=== PATIENT | female | born 1960 | race Caucasian/White ===

== ENCOUNTER → 2018-05-10 10:17 | Outpatient (CLI) | payer OTHER, SELFPAY ==
[2018-05-10 10:58] LABS: Absolute Lymphocyte Count 1.48 X10^3/ul (0.83-4.51); Absolute Neutrophil Count 3.4 X10^3/uL (2.0-7.7); Basophil# 0.02 X10^3/uL; Basophil% 0.4 % (0-1); Eosinophil# 0.08 X10^3/uL; Eosinophils% 1.5 % (0-5); Hematocrit 42.6 % (37-47); Hemoglobin 14.1 g/dl (12.0-15.0); Lymphocyte # 1.48 X10^3/ul (4.0); Lymphocyte % 27.3 % (19-41); Mean Corp Hgb Conc 33.1 g/gl (32-36); Mean Corpuscular Hgb 29.3 pg (27.0-32.0); Mean Corpuscular Volume 88.6 fL (81-99); Mean Platelet Vol. 10.5 fl (6.2-12.0); Monocyte# 0.49 X10^3/uL; Neutrophil # 3.35 X10^3/uL (2.7-7.7); Neutrophil % 61.6 % (47-70); POSITIVE COUNT NO; POSITIVE DIFFERENTIAL NO; POSITIVE MORPHOLOGY NO; Platelet Count 221 K/mm3 (150-450); RBC Distribution Width CV 12.8 % (11.6-14.6); RBC Distribution Width SD 41.1 fl (35.1-43.9); Red Blood Count 4.81 M/mm3 (4.2-5.4); White Blood Count 5.4 K/mm3 (4.4-11.0)
[2018-05-10 11:26] LABS: ALB/GLOB Ratio 1.3 RATIO (0.9-2.4); AST(SGOT) 23 U/L (15-37); Alanine Aminotransfer ALT/SGPT 44 U/L (13-56); Albumin, Serum 4.3 g/dL (3.2-5.0); Alkaline Phosphatase 109 U/L (45-117); Anion Gap 7 (5-15); BUN 17 mg/dL (7-18); BUN/Creat Ratio 24.3 RATIO (10-20); Calcium,Total 8.8 mg/dL (8.5-10.1); Chloride 105 mmol/L (98-107); EST Glomerular Filtration Rate 92 mL/min (>60); Est Glom Filt Rate - Afr Amer 111 mL/min (>60); Globulin 3.4 g/dL (2.2-4.2); Glucose 94 mg/dL (74-106); LDH 172 U/L (84-246); Protein, Total 7.7 g/dL (6.4-8.2); Sodium Level 142 mmol/L (136-145)
== END ==
PROVIDERS: Family Provider Preventive Medicine Occupational Medicine; PCP Preventive Medicine Occupational Medicine; Referring Provider Internal Medicine Medical Oncology; Visit Provider Internal Medicine Medical Oncology
DX: Z85.72 Personal history of non-Hodgkin lymphomas (principal)
CPT/HCPCS: 36415; 80053; 83615; 85025

== ENCOUNTER → 2018-06-28 07:50 | Outpatient (CLI) | payer OTHER, SELFPAY ==
--- NOTE | 2018-06-28 07:53 | BI_ITS ---
MAMMOGRAPHY - BILATERAL SCREENING REASON FOR EXAM: Female, 57 years old. Routine annual screening examination. PERTINENT HISTORY: Aunt with breast cancer. History of lymphoma. TECHNIQUE: Digital bilateral breast dexter (3D mammographic acquisition) in the CC and MLO projections. 2-D mediolateral oblique (MLO) and craniocaudad (CC) views of both breasts were obtained. CAD: Full Field Digital Mammography with Computer Added Detection was performed. COMPARISON: Comparison is made with prior study dated June 02, 2016 and June 24, 2014. FINDINGS: Breast Composition: The breasts are heterogeneously dense, which may obscure small masses. There are no dominant masses or suspicious calcifications. No other significant abnormalities are identified. There has been no significant change since the prior study. BI/SCREENING MAMM (CAD), BILAT IMPRESSION: Stable bilateral screening mammogram. Yearly follow-up mammogram recommended. (A) ASSESSMENT CATEGORY: BIRADS Category 1: Negative. A letter regarding these results will be sent to the patient by the facility within 30 days. Approximately 10% of breast cancers are not detected by mammography. A normal mammogram should not delay biopsy of a clinically suspicious abnormality. [id number] Electronically Signed: Jadon Campos MD at 9:36 EST Tel [phone], Service support ,
--- OUTSIDE RECORDS SUMMARY | 2018-08-14 02:41 | XMS RPT_ITS ---
:1960 Author Organization OHIP Care Team Providers Name Role Phone MS. ROLAND WATERS CNP Attending Unavailable JT KELSEY, MS. WATKINS Attending Unavailable MS. ROLAND WATERS CNP Primary Care Unavailable Wilton Martin Attending Unavailable Tyrese Chi Primary Care Unavailable Wilton Martin Attending Unavailable Tyrese Chi Primary Care Unavailable Tyrese Chi Referring Unavailable Wilton Martin Attending Unavailable Wilton Martin Referring Unavailable Tyrese Chi Primary Care Unavailable Wilton Martin Attending Unavailable Tyrese Chi Referring Unavailable Tyrese Chi Primary Care Unavailable Wilton Martin Consulting Unavailable PROBLEMS PROBLEMS DATE TYPE CONDITION / CODE ATTENDING STATUS SOURCE 05/12/2018 Unknown Z12.31 - Wilton Martin Active Akiko Encounter for [facility] screening Hospital mammogram for Repository malignant neoplasm of breast / Z12.31(ICD-10) PROCEDURES PROCEDURES No Procedure Records FoundRESULTS RESULTS SCREENING MAMM (CAD), Observed: 06/28/2018 Status: F Source: [place]KO JAIMES 7:53 AM [facility] REPOSITORY [facility] Imaging Services [address] [place] [address] SCREENING MAMM (CAD), BILAT MR#: [id number] Acct: [id number] Name: FARAZ HERNANDEZ Rep #: [id number] : 1960 F 57 From: Jadon Campos MD PCP: Tyrese Chi DO Status: REG CLI Study: SCREENING MAMM (CAD), BILAT Date of Exam: 06/28/18 Exam# [id number] Ordering Dr: Wilton Martin MD MAMMOGRAPHY - BILATERAL SCREENING REASON FOR EXAM: Female, 57 years old. Routine annual screening examination. PERTINENT HISTORY: Aunt with breast cancer. History of lymphoma. TECHNIQUE: Digital bilateral breast dexter (3D mammographic acquisition) in the CC and MLO projections. 2-D mediolateral oblique (MLO) and craniocaudad (CC) views of both breasts were obtained. CAD: Full Field Digital Mammography with Computer Added Detection was performed. COMPARISON: Comparison is made with prior study dated June 02, 2016 and June 24, 2014. FINDINGS: Breast Composition: The breasts are heterogeneously dense, which may obscure small masses. There are no dominant masses or suspicious calcifications. No other significant abnormalities are identified. There has been no significant change since the prior study. BI/SCREENING MAMM (CAD), BILAT IMPRESSION: Stable bilateral screening mammogram. Yearly follow-up mammogram recommended. (A) ASSESSMENT CATEGORY: BIRADS Category 1: Negative. A letter regarding these results will be sent to the patient by the facility within 30 days. Approximately 10% of breast cancers are not detected by mammography. A normal mammogram should not delay biopsy of a clinically suspicious abnormality. 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 LIPID Collected: 05/15/2018 Status: F Source: [facility] 9:29 AM [facility] REPOSITORY TYPE CODE TESTS RESULT OUT OF REFERENCE UNITS RANGE LAB CHOL(LOINC 0-200 mg/dL ) Cholesterol High 218 Result Comment: Cholesterol Reference Interval: Less than 200 Desirable 200-239 Borderline high risk 240 and above High risk LAB TRIG(LOINC) 0-150 mg/dL Triglycerides 43 Result Comment: Triglyceride Reference Interval: Less than 150 Normal 150-199 Borderline high risk 200-499 High risk 500 or higher Very high risk LAB HD(LOINC) 40-60 mg/dL HDL Cholesterol 58 LAB LDL(LOINC) 0-130 mg/dL LDL High Cholesterol 151 Performed By: #### LIPID, CMP, GFR #### [place] [id number] CMP Collected: 05/15/2018 Status: F Source: [facility] 9:29 AM [facility] REPOSITORY TYPE CODE TESTS RESULT OUT OF REFERENCE UNITS RANGE LAB GLU(LOINC) 70-105 mg/dL Glucose Level 92 LAB NA(LOINC) 136-145 mmol/L Sodium Level 143 LAB K(LOINC) 3.5-5.1 mmol/L Potassium Level 4.2 LAB CL(LOINC) 98-107 mmol/L Chloride 106 LAB CO2(LOINC) 22-29 mmol/L CO2 29 LAB EBAL(LOINC mEq/L ) Electrolyte Balance 8.0 LAB BUN(LOINC) 7-18 mg/dL BUN 14 LAB CRE(LOINC) 0.55-1.02 mg/dL Creatinine Lvl (s) 0.69 LAB BC(LOINC) 7-27 ratio BUN/Creatinine 20 Ratio LAB CA(LOINC) 8.4-10.2 mg/dL Calcium Lvl 9.0 LAB PROT(LOINC 6.4-8.2 G/dL ) Total Protein 6.9 LAB ALB(LOINC) 3.5-5.0 G/dL Albumin Level 4.1 LAB GLB(LOINC) G/dL Globulin 2.8 LAB AG(LOINC) 1.1-2.5 ratio A/G Ratio 1.5 LAB BILT(LOINC 0.2-1.0 mg/dL ) Bili Total 0.3 LAB AP(LOINC) 40-135 U/L Alk Phos 102 LAB AST(LOINC) 10-40 U/L AST/SGOT High 44 LAB ALT(LOINC) 10-35 U/L ALT/SGPT High 67 Performed By: #### LIPID, CMP, GFR #### [facility] [address] [place] [address] .GFR Collected: 05/15/2018 Status: F Source: [facility] 9:29 AM [facility] REPOSITORY TYPE CODE TESTS RESULT OUT OF REFERENCE UNITS RANGE LAB GFRAA(LOINC ml/min/1.73 ) sqm GFR 106 [place] Result Comment: GFR Population mean for , Non- Americans Ages 20-29 = 116 mL/min/1.73 sq.m. Ages 30-39 = 107 mL/min/1.73 sq.m. Ages 40-49 = 99 mL/min/1.73 sq.m. Ages 50-59 = 93 mL/min/1.73 sq.m. Ages 60-69 = 85 mL/min/1.73 sq.m. Ages 70+ = 75 mL/min/1.73 sq.m. Chronic Kidney Disease: Less than 60 mL/min/1.73 square meters End Stage Renal Disease: Less than 15 mL/min/1.73 square meters LAB GFRNO(LOINC) ml/min/1.73sqm GFR Non- 88 Result Comment: GFR Population mean for , Non- Americans Ages 20-29 = 116 mL/min/1.73 sq.m. Ages 30-39 = 107 mL/min/1.73 sq.m. Ages 40-49 = 99 mL/min/1.73 sq.m. Ages 50-59 = 93 mL/min/1.73 sq.m. Ages 60-69 = 85 mL/min/1.73 sq.m. Ages 70+ = 75 mL/min/1.73 sq.m. Chronic Kidney Disease: Less than 60 mL/min/1.73 square meters End Stage Renal Disease: Less than 15 mL/min/1.73 square meters Performed By: #### LIPID, CMP, GFR #### [place] [id number] [place] [address] BD BONE DENSITY DEXA Observed: 05/15/2018 Status: F Source: [facility]IAL [place] 9:00 AM [facility] REPOSITORY ORIGINAL BONE DENSITOMETRY CLINICAL STATEMENT: POSTMENOPAUSAL COMPARISON: None available T Score Left Femoral Neck: -1.1 BMD (g/cm2) Left Femoral Neck: 0.724 T Score Left Hip: -0.1 BMD (g/cm2) Left Hip: 0.927 T Score Lumbar Spine L1-L4: -0.7 BMD (g/cm2) Lumbar Spine L1-L4: 0.969 CONCLUSION: The patient is considered osteopenic based on the left femoral neck which has a T score of -1.1. *By the World Health Organization standards: Osteopenia is present when the bone mineral density is greater than 1 standard deviation (SD) but less than 2.5 SDs below a young normal sex matched populati on. Osteoporosis is present when the bone mineral density is equal to or greater than 2.5 SDs below a young normal sex matched population. Interpreted By: Stephon Perez MD Preliminary Report By: Stephon Perez MD Electronically Signed By: Stephon Perez MD Dictated Date: 05/15/2018 2:12:46 PM Prelim Date: 05/15/2018 2:12:46 PM Sign Date: 05/15/2018 2:13:49 PM ONCOLOGY VISIT REPORT Observed: 05/10/2018 Status: F Source: [place] 11:31 AM [facility] REPOSITORY [facility] [place] [address] OFFICE VISIT Date of Service: 05/10/18 1123 MR#: [id number] Acct: [id number] Name: FARAZ HERNANDEZ Rep #: [id number] : 1960 From: Wilton Martin MD Age/Sex: 57/F Location: OMD Status: Signed Subjective - Date of Service Date of Service:: 05/10/18 - Chief Complaint F/u for NHL. 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 She was treated with radiation therapy to the left parotid and left side of neck which was completed on 07/08/2009. She achieved remission, currently on observation, comes in for follow-up. She feels well. - Past Medical/Social History Past Medical History Past Medical History: Anxiety,Depression Cancer: Lymphoma Past Surgical History Surgical: section,Hysterectomy,Tubal ligation Other Surgical History: Squamous cell CA - R posterior thigh with further resection Family History Paternal Past Medical History: Heart disease,Unknown Maternal Past Medical History: Heart disease Maternal History of Cancer: Breast cancer Social History Social History: No changes Smoking Status Never smoker Review of Systems Constitutional:: Denies: Fever, Sweats, Weight loss, Appetite change, Chills Cardiovascular:: Denies: Chest pain, Palpitations, Dyspnea on exertion, Orthopnea, PND, Shortness of breath Respiratory: Denies: Cough, Hemoptysis, Shortness of Breath, Wheezing Gastrointestinal:: Denies: Abdominal pain, Nausea, Vomiting, Diarrhea, Constipation, Hematochezia Genitourinary: Denies: Dysuria, Hematuria, 15, Flank pain Musculoskeletal:: Denies: Back pain, Myalgia, Arthralgia Skin: Denies: Rash, Skin Changes, Wounds Neurological:: Denies: Headache, Dizziness, Visual changes, Tinnitus, Hearing loss Psychiatric: Denies: Anxiety, Depression, Homicidal Ideations, Suicidal Ideations Vital Signs Height 5 ft 4.5 in Weight: 64.773 kg Weight in Pounds 142.8 lbs Pulse Ox 100 - Physical Exam General: Alert, Oriented x3, No apparent distress HEENT: Atraumatic, PERRLA, EOMI, Normocephalic Oropharynx:: Dry mucosa Neck:: Supple, Trachea midline. Negative for: JVD, bilateral Cardiac:: Regular rate, Regular rhythm, Normal S1, Normal S2. Negative for: Murmur Lungs: Clear to auscultation, Excusion symmetrical. Negative for: Rhonchi, Wheezes Abdomen:: Bowel sounds x 4, Soft, Non-tender, Non-distended. Negative for: Hepatosplenomegaly Extremities:: Negative for: Cyanosis, Edema Neurological: Neuro grossly intact Skin:: Negative for: Lesions, Rash, Petechiae, Ecchymosis Psychiatric:: Appropriate affect, Euthymic Lymphatics:: Negative for: Cervical lymphadenopathy, Supraclavicular lymphadenopathy, Axillary lymphadenopathy Laboratory Data: Laboratory Tests WBC 4.9 Hgb 14.1 Hct 42.7 Plt Count 194 Creatinine 0.78 Calcium 8.8 Lactate Dehydrogenase 171 Assessment and Plan NHL-follicular B-Cell type stage IA. No evidence of disease clinically. Plan is to continue observation. RTC 1 yr with CBC/CMP/LDH. Medications: Prescriptions This Visit Medication Instructions Recorded Primary Care Provider: Tyrese Chi Referring Provider: Tyrese Chi - Problem List (1) History of non-Hodgkin's lymphoma Status: Chronic Code Visit Office Visits / Consults: 03547 OV L3 Est 05/10/18 1131 <Electronically signed by Wilton Martin MD> Date Wilton Martin MD Cosigner Signature: Date (if applicable) CC: CBC W/DIFF, AUTOMATED Collected: 05/10/2018 Status: F Source: [place] 10:44 AM [facility] REPOSITORY Order Comment: Reason for Laboratory Test . TYPE CODE TESTS RESULT OUT OF RANGE REFERENCE UNITS LAB L100.1000 4.4-11.0 K/mm3 Normal WBC 5.4 LAB L100.1200 4.2-5.4 M/mm3 Normal RBC 4.81 LAB L100.1300 12.0-15.0 g/dl Normal HGB 14.1 LAB L100.1400 37-47 % Normal HCT 42.6 LAB L100.1500 81-99 fL Normal MCV 88.6 LAB L100.1600 27.0-32.0 pg Normal MCH 29.3 LAB L100.1700 32-36 g/gl Normal MCHC 33.1 LAB L100.1810 11.6-14.6 % Normal RDW CV 12.8 LAB L100.1820 35.1-43.9 fl Normal RDW SD 41.1 LAB L100.1900 150-450 K/mm3 Normal PLT 221 LAB L100.2000 6.2-12.0 fl Normal MPV 10.5 LAB L100.2100 47-70 % Normal NEUT% 61.6 LAB L100.2200 19-41 % Normal LY% 27.3 LAB L100.2300 0-10 % Normal MONO% 9.0 LAB L100.2400 0-5 % Normal EO% 1.5 LAB L100.2500 0-1 % Normal BASO% 0.4 LAB L100.2550 0.0-0.9 % Normal IM GRAN % 0.200 Result Comment: IG% - Immature Granulocytes (promyelocytes, myelocytes and metamyelocytes) > 1% indicates that a LEFT SHIFT is Present. LAB L100.2620 2.0-7.7 X10 3/uL Normal Absolute Neut 3.4 LAB L100.2720 0.83-4.51 X10 3/ul Normal Absolute Lymph 1.48 Performed By: #### L100.0100 #### [facility] [address] [place], [address] COMPREHENSIVE METABOLIC Collected: 05/10/2018 Status: F Source: [facility] 10:44 AM [facility] REPOSITORY Order Comment: Reason for Laboratory Test . Serial Specimen #1, #2 or #3? 1 TYPE CODE TESTS RESULT OUT OF RANGE REFERENCE UNITS LAB L501.0100 74-106 mg/dL Normal GLU 94 Result Comment: Please note revised GLUCOSE reference range effective 2017. LAB L501.1000 7-18 mg/dL Normal BUN 17 LAB L501.1100 0.55-1.02 mg/dL Normal CREAT,SERUM 0.70 Result Comment: The validity of the calculated GFR AND GFRAA in patients over 70 years has not been determined. Clinical correlation is essential. LAB L501.1110 >60 mL/min Normal EST GFR 92 Result Comment: Non- GFR Calc LAB L501.1115 >60 mL/min Normal EST GFR - AA 111 Result Comment: GFR Calc LAB L501.1300 10-20 RATIO High BUN/CRE 24.3 LAB L501.1500 6.4-8.2 g/dL T Normal PROT 7.7 LAB L501.1800 3.2-5.0 g/dL Normal ALB 4.3 LAB L501.1950 2.2-4.2 g/dL Normal GLOB 3.4 LAB L501.2000 0.9-2.4 RATIO Normal A/G 1.3 LAB L501.2200 8.5-10.1 mg/dL CA Normal 8.8 LAB L501.4100 15-37 U/L Normal AST 23 LAB L501.4305 45-117 U/L Normal ALK P 109 LAB L501.4405 13-56 U/L Normal ALT 44 LAB L501.4600 0.20-1.00 mg/dL T Normal BILI 0.60 LAB L501.5300 136-145 mmol/L NA Normal 142 LAB L501.5600 3.5-5.1 mmol/L K Normal 4.0 LAB L501.5900 98-107 mmol/L CL Normal 105 LAB L501.6100 21.0-32.0 mmol/L Normal CO2 30.0 LAB L501.6200 5-15 Normal GAP 7 Performed By: #### L500.4050, L504.2610 #### [facility] [address] [place], [place], [address] LDH Collected: 05/10/2018 Status: F Source: [place] 10:44 AM [facility] REPOSITORY Order Comment: Reason for Laboratory Test . Serial Specimen #1, #2 or #3? 1 TYPE CODE TESTS RESULT OUT OF RANGE REFERENCE UNITS LAB L504.2610 84-246 U/L Normal LDH 172 Performed By: #### L500.4050, L504.2610 #### [facility] [address] [place], [address] ALLERGIES ALLERGIES DATE TYPE / CODE NAME / CODE REACTION SEVERITY SOURCE 05/10/2018 Drug No Known Unknown [facility] Allergy/4160 Allergies/F00 [facility] 32664(SNOMED 2565282(RXNOR Repository CT) M) ENCOUNTERS ENCOUNTERS ADMIT/DISCHARGE ACCOUNT NUMBER ADMITTING ENCOUNTER LOCATION SOURCE CLASS 06/28/2018 [id number] Ambulatory [facility] ding:OPBI Repository 05/15/2018/05/15/20 [id number] Ambulatory [address] ding:[facility]AB [facility] Repository 05/15/2018/05/15/20 [id number] Ambulatory [address] ding:RAD [facility] Repository 05/10/2018 [id number] Ambulatory BMSBuilding: Akiko BMS.CF.WMO [facility] Repository 05/10/2018 [id number] Ambulatory [facility] ding:OMD Repository 05/10/2018 [id number] Ambulatory [facility] ding:LAB Repository PAYERS PAYERS ENCOUNTER GUARANTOR PAYER SUBSCRIBER SOURCE 06/28/2018 GUILLERMINA Blake Primary Insurance:Re [id number] BACK JACKIE [id number] TROYERDOB: [facility] Number: [id number] [id number] Repository [address]Gxz: ([phone]) Date:2648-36-95[phone] (HP) [address] [place] [phone]: 06/28/2018 Secondary NOT GIVENUNK Akiko Insurance:SELF PAY [facility] Number: Effective Repository Date:2018-05-10 05/15/2018 FARAZ Spring Primary Insurance:[facility] GUILLERMINA Hayden [facility] TROYERDOB: [employer] Number: TROYERDOB: [facility] [id number] [facility]ository [facility] Date:2018-05-15 [place], [place] [id number] MASSILLON [address]~SKAATROYER Name:[place], [place] [email or web address]: [address], [address]Hah: (330) [place] [address]TB: [phone] (HP) (HP) (WP) 05/15/2018 FARAZ [place] Primary Insurance:UMRe Blake [facility] TROYERDOB: [employer] Number: TROYERDOB: [facility] [id number] Repository BACK [place] Date:2018-05-11 [place], [place] [id number] [place] [address]~AMOS Name:PANEL INSTALLER [address] [place], [place] [email or web address]: [address] [place] [address]Deg: (330) [place] [address]PL: [phone] (HP) (HP) () 05/10/2018 GUILLERMINA Blake Primary Insurance:[facility] GUILLERMINA Wharton [id number] BACK JACKIE [id number] [facility] Number: [id number], [place] [id number] Repository [address]Etu: 330) Date:8577-71-46QH [phone] () [address] [place] [phone]: 05/10/2018 Secondary NOT GIVENUNK Akiko Insurance:SELF PAY [facility] Number: Effective Repository Date:2018-05-10 05/10/2018 GUILLERMINA Blake Primary FARAZDINORA [place] [id number] BACK Insurance:MEDICAL TROYERDOB: [facility] [id number], [place] Number: Repository [address]Oss: [phone]) [id number] [phone] (HP) Date:7597-03-23Ja [address] [place] [address]UB: 05/10/2018 Secondary NOT GIVENUNK Ney Insurance:SELF PAY [facility] Number: Effective Repository Date:2016-10-04 05/10/2018 GUILLERMINA Blake Primary Insurance:R GUILLERMINA Blake Akiko [id number] BACK JACKIE [id number] [facility]DOB[facility] Number: [id number], [place] [id number] Repository [address]Qfn: 330) Date:5300-85-20WX [phone] () [address] [address]FY: 05/10/2018 Secondary NOT GIVENUNK Ney Insurance:SELF PAY [facility]: Effective Repository Date:2018-05-10
== END ==
PROVIDERS: Family Provider Preventive Medicine Occupational Medicine; PCP Preventive Medicine Occupational Medicine; Visit Provider Internal Medicine Medical Oncology
DX: Z12.31 Encounter for screening mammogram for malignant neoplasm of breast (principal)
CPT/HCPCS: 77063; 77067

== ENCOUNTER → 2019-07-04 07:35 | Outpatient (CLI) | payer OTHER, SELFPAY ==
--- NOTE | 2019-07-04 07:36 | BI_ITS ---
MAMMOGRAPHY - BILATERAL SCREENING REASON FOR EXAM: Female, 58 years old. Routine annual screening examination. PERTINENT HISTORY: Aunt with breast cancer. Personal history of lymphoma. TECHNIQUE: Digital bilateral breast faizan (3D mammographic acquisition) in the CC and MLO projections. 2-D mediolateral oblique (MLO) and craniocaudad (CC) views of both breasts were obtained. CAD: Full Field Digital Mammography with Computer Added Detection was performed. COMPARISON: Comparison is made with prior study dated June 28, 2018 and June 02, 2016. FINDINGS: Breast Composition: The breasts are heterogeneously dense, which may obscure small masses. There are no dominant masses or suspicious calcifications. No other significant abnormalities are identified. There has been no significant change since the prior study. BI/SCREEN MAMM (CAD) W/FAIZAN BILAT IMPRESSION: Stable bilateral screening mammogram. Yearly follow-up mammogram recommended. (A) ASSESSMENT CATEGORY: BIRADS Category 2: Benign. A letter regarding these results will be sent to the patient by the facility within 30 days. Approximately 10% of breast cancers are not detected by mammography. A normal mammogram should not delay biopsy of a clinically suspicious abnormality. [id number] Electronically Signed: Jadon Campos, at 8:45 EST , Service support ,
== END ==
PROVIDERS: Family Provider Nurse Practitioner Family; PCP Nurse Practitioner Family; Referring Provider Internal Medicine Medical Oncology; Visit Provider Internal Medicine Medical Oncology
DX: Z12.31 Encounter for screening mammogram for malignant neoplasm of breast (principal)
CPT/HCPCS: 77063; 77067

== ENCOUNTER → 2023-04-20 | Outpatient (CLI) | payer OTHER, SELFPAY ==
--- NOTE | 2023-04-20 08:18 | BI_ITS ---
MAMMOGRAPHY - BILATERAL SCREENING REASON FOR EXAM: Female, 62 years old. Routine annual screening examination. PERTINENT HISTORY: Aunts with breast cancer. Patient has a history of treated lymphoma. TECHNIQUE: Digital bilateral breast faizan (3D mammographic acquisition) in the CC and MLO projections. 2-D mediolateral oblique (MLO) and craniocaudad (CC) views of both breasts were obtained. CAD: Full Field Digital Mammography with Computer Added Detection was performed. COMPARISON: Comparison is made with prior study dated July 04, 2019 and June 28, 2018. FINDINGS: Breast Composition: The breasts are heterogeneously dense, which may obscure small masses. There are no dominant masses or suspicious calcifications. Stable small benign-appearing bilateral axillary lymph nodes. No other significant abnormalities are identified. There has been no significant change since the prior study. BI/SCRN MAMM (CAD)W/FAIZAN BILAT IMPRESSION: Stable bilateral screening mammogram. Yearly follow-up mammogram recommended. (A) ASSESSMENT CATEGORY: BIRADS Category 2: Benign. A letter regarding these results will be sent to the patient by the facility within 30 days. Approximately 10% of breast cancers are not detected by mammography. A normal mammogram should not delay biopsy of a clinically suspicious abnormality. [id number] Electronically Signed: Jadon Campos MD at 9:56 EDT ,
== END | disposition home or self-care (01) ==
PROVIDERS: PCP Nurse Practitioner Family; Referring Provider Family Medicine; Visit Provider Family Medicine
DX: Z12.31 Encounter for screening mammogram for malignant neoplasm of breast (principal); Z80.3 Family history of malignant neoplasm of breast
CPT/HCPCS: 77063; 77067

== ENCOUNTER → 2024-09-24 | Outpatient (CLI) | payer OTHER, SELFPAY ==
--- NOTE | 2024-09-24 15:36 | RAD_ITS ---
EXAM: XR Abdomen, 1 View CLINICAL INDICATION: CALCULUS OF KIDNEY TECHNIQUE: Frontal supine view of the abdomen/pelvis. COMPARISON: No relevant prior studies available. FINDINGS: GASTROINTESTINAL TRACT: Fecal retention in the colon consistent with constipation. No dilation. BONES/JOINTS: Unremarkable. No acute fracture. RAD/Abdomen Single View IMPRESSION: Fecal retention in the colon consistent with constipation. Reading [facility]
== END | disposition home or self-care (01) ==
LOC: RAD 15:31
PROVIDERS: PCP Family Medicine; Referring Provider Nurse Practitioner; Visit Provider Nurse Practitioner
DX: N20.0 Calculus of kidney (principal)
CPT/HCPCS: 74018

== ENCOUNTER 2024-09-26 12:06 | Day surgery (SDC) | payer OTHER, SELFPAY ==
[2024-09-25 08:47] VITALS: BMI 22.8
[2024-09-26] VITALS (7 sets, daily range): BP systolic 119–145; BP diastolic 74–84; PULSE 76–91; RESP 14–18; TEMP 36.2–37.2; O2SAT 93–99; BMI 23.8
--- NOTE | 2024-09-26 12:38 | PRE.ANES_ITS ---
ASA Classification* ASA Classification ASA Classification: 2 Assessment & Plan Anesthesia* Anesthesia Assessment Anesthesia Assessment: Discussed sedation and/or anesthesia options, risks, benefits, and alternatives with patient/parents/legal guardian/POA. Questions invited. The patient/parents/legal guardian/POA seems to understand and agrees to proceed with anesthesia plan. Reviewed the physical assessment, medical history, allergy history and patient home medications list prior to surgery/procedure/anesthetic and documented any changes. Performed airway and anesthesia risk assessments. Anesthesia Type Anesthesia Type: General Anesthesia Focused Assessment* Airway Assessment Mouth opens: >3 cm Mallampati Score: II Focused Labs Anesthesia Preop lab: CBC WBC 6.7 K/mm3 (4.4-11.0) 07/09/19 13:59 07/09/19 RBC 4.53 M/mm3 (4.2-5.4) 07/09/19 13:59 07/09/19 Hgb 13.5 g/dL (12.0-15.0) 07/09/19 13:59 07/09/19 Hct 40.8 % (37-47) 07/09/19 13:59 07/09/19 Plt Count 200 K/mm3 (150-450) 07/09/19 13:59 07/09/19 CHEMISTRY Potassium 3.5 mmol/L (3.5-5.1) 07/09/19 13:59 07/09/19 Sodium 141 mmol/L (136-145) 07/09/19 13:59 07/09/19 BUN 12 mg/dL (7-18) 07/09/19 13:59 07/09/19 Creatinine 0.75 mg/dL (0.55-1.02) 07/09/19 13:59 07/09/19 Glucose 107 mg/dL (74-106) H 07/09/19 13:59 07/09/19 TSH 1.59 uIU/mL (0.358-3.74) 01/24/13 16:20 3 COAG Pre-Assessment Diagnosis/Proposed Procedure Planned Operative Procedure(s): R ESWL Anesthesia History 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 When Was Last Pacemaker Check QUESTION #4 FULL TEXT: You/Your Family Experience fever (hyperthermia) with Anesthesia Last Oral Intake Last Oral intake: Last Oral Intake NPO since Meds taken in AM with sips of water? Meds patient instructed to take am of surgery PONV PONV - electric fork operator: PONV - electric fork operator Female Yes 09/25/24 08:47 HX of Motion Sickness No 09/25/24 08:47 HX of N/V After Surgery No 09/25/24 08:47 Non-Smoker Yes 09/25/24 08:47 Duration of Surgery greater No 09/25/24 08:47 than 60 minutes Number of Risk Factors 2 09/25/24 08:47 PONV Score Moderate Risk 09/25/24 08:47 Height & Weight Height & Weight: Anesthesia: Height & Weight Height 5 ft 4.5 in 09/25/24 08:47 Weight: 61.518 kg 09/25/24 08:47 Body Mass Index (BMI) 22.8 09/25/24 08:47 Respiratory Assessment Respiratory Assessment - electric fork operator: Respiratory Tract Infection Hx - electric fork operator Hx Respiratory Tract Infection Yes: HEAD COLD/SINUS INFEC. 09/25/24 08:47 NO FEVER STOP Sleep Apnea STOP Sleep Apnea - electric fork operator: STOP Sleep Apnea - electric fork operator Hx Hypertension No 09/25/24 08:47 Hx Sleep Apnea No 09/25/24 08:47 CPAP BIPAP Do you snore loudly (louder No 09/25/24 08:47 than talking or can be heard Do you often feel tired/ No 09/25/24 08:47 fatigued/ sleepy during daytime? Has anyone observed you stop No 09/25/24 08:47 breathing during sleep? STOP Results Negative 09/25/24 08:47 QUESTION #5 FULL TEXT : Do you snore loudly (louder than talking or can be heard through closed doors)? 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 Specify any problems Hx of Preganancy in last 3 No 09/25/24 08:47 Months Nurse Filling Out Transfusion VCHRISTIN 09/25/24 08:47 & Questions: Date: 09/25/24 09/25/24 08:47 Time: 08:49 09/25/24 08:47 Patient unable to answer at this time (ie. confused, unrespo /Reproduction History /Reproductive History - electric fork operator: /Reproductive Hx- electric fork operator Hx Now Gestational Age (in weeks): EDC: Hx Hx Para Hx Section SAB Active Medications Active Medications: Current Medications Generic Name Dose Route Start Last Admin Trade Name Freq PRN Reason Stop Dose Admin Sodium Chloride 1,000 mls @ 15 mls/hr 09/26/24 12:20 IV 10/02/24 01:39 .Q48H SLICK Protocol Cefazolin Sodium 2 gm/ N/A 20 mls @ 400 mls/hr 09/26/24 12:38 IV 09/26/24 12:40 PREOP ONE PFSH Medical History Post-menopausal Cancer Arthritis Back pain Non-smoker Vertigo SCC (squamous cell carcinoma) Depression Anxiety Home Medications ?Medication ?Instructions ?Recorded ?Last Taken ?Type cholecalciferol (vitamin D3) 50 50 mcg PO DAILY Unknown History mcg (2,000 unit) capsule (Vitamin D3) omega 2-luw-aoq-fish oil 1,200 mg 1 cap PO DAILY 09/25 Unknown History (144 mg-216 mg) capsule (Fish Oil) vitamin K2 100 mcg capsule 100 mcg PO DAILY 09/25/24 U nknown History Allergy/AdvReac Type Severity Reaction Status Date / Time No Known Allergies Allergy Verified 09/25/24 08:39 Family History Father Heart disease Mother Heart disease Breast cancer Surgical History History of tubal ligation History of hysterectomy History of section Social History Smoking Status: Never smoker Review of Systems (Anesthesia) ROS Narrative System reviewed and no additional complaints, except as documented.
[2024-09-26] MEDS: 0.9% Normal Saline (1000mL) 1,000 ML 15 ML IV (13:25)
--- NOTE | 2024-09-26 14:54 | DCINST_ITS ---
Discharge Instructions Diet Discharge Diet: No restrictions DC O2, CPAP, BIPAP needs Home O2 Discharge instructions: No Dressing / Incision Discharge Activity: Return to Normal Activity and May Not Drive (while taking narcotic pain medications.) Dressing / Incision Call your doctor if you observe: Fever of 101 or Higher Follow Up Care Please Follow Up With: Royer Rodriguez MD When: Call [phone] for an appointment Test Results: Test results from this visit will be discussed in further detail at your follow- up appointment, if applicable. Discharge Plan Admission Attending Provider: Royer Rodriguez Primary Care Provider: Perry Murillo Instructions Print Language: Tamazight Discharge Orders/Prescriptions Prescriptions: No Action cholecalciferol (vitamin D3) [Vitamin D3] 50 mcg (2,000 unit) capsule 50 mcg PO DAILY vitamin K2 100 mcg capsule 100 mcg PO DAILY omega 5-xay-alg-fish oil [Fish Oil] 1,200 (144-216) mg capsule 1 cap PO DAILY Referrals / Follow Up: Perry Murillo MD [Primary Care Provider] - Disposition Disposition (needs filled in before D/C Order can be placed): Home, Self Care
--- NOTE | 2024-09-26 14:54 | PCM.HP.STD ---
HPI - General General Date of Service: 09/26/24 Chief Complaint: Distal right ureteral calculi HPI Narrative BARTOLO HERNANDEZ, is a 64 F who presents for shockwave lithotripsy for stone in the distal right ureter. [facility] Medical History Post-menopausal Cancer Arthritis Back pain Non-smoker Vertigo SCC (squamous cell carcinoma) Depression Anxiety Home Medications ?Medication ?Instructions ?Recorded ?Last Taken ?Type cholecalciferol (vitamin D3) 50 50 mcg PO DAILY 09/25/24 09/24/24 History mcg (2,000 unit) capsule (Vitamin D3) omega 3-izn-nme-fish oil 1,200 mg 1 cap PO DAILY 09/25/24 09/23/24 History (144 mg-216 mg) capsule (Fish Oil) vitamin K2 100 mcg capsule 100 mcg PO DAILY 09/25/24 09/24/24 History Allergy/AdvReac Type Severity Reaction Status Date / Time No Known Allergies Allergy Verified 09/26/24 13:07 Family History Father Heart disease Mother Heart disease Breast cancer Surgical History History of tubal ligation History of hysterectomy History of section Social History Smoking Status: Never smoker Vital Signs Vital Signs Vital Signs: 09/26/24 13:11 09/26/24 13:11 Temperature 98.9 F Temperature Source Temporal Pulse Rate 91 Respiratory Rate 16 Respiratory Pattern Normal Blood Pressure 142/84 H Blood Pressure Mean 103 Blood Pressure Source Monitor Blood Pressure Position Sitting Blood Pressure Location Right Arm Pulse Ox 98 Oxygen Delivery Method Room Air Weight Weight: 63 kg Body Mass Index (BMI) 23.8
[2024-09-26] MEDS: Cefazolin 2 GM in Syringe IV (15:20)
--- NOTE | 2024-09-26 15:45 | OP.PCM_ITS ---
Operative Report (Standard) Operative Information Date of Procedure: 09/26/24 Pre-Operative Diagnosis: Right ureteral calculi Post-Operative Diagnosis: the same Surgery/Procedure Performed: right extracorporeal shockwave lithotripsy client account assistant: No Type of Anesthesia: General RN Documented Start/Stop Times: Operation Date: 09/26/24 14:30 Case Time Into Pre-Op 09/26/24 12:16 Anesthesia Start 09/26/24 15:18 Into Room 09/26/24 15:18 Out of Pre-Op 09/26/24 15:22 Procedure Start 09/26/24 15:24 Procedure Start Time: 15:24 Procedure Stop Time: 15:58 Select all DRAINS/GRAFTS/IMPLANTS that apply: None Estimated Blood Loss: 0*right Specimen collected: No Description of surgery: Patient presents to the hospital for treatment of a kidney stone with shockwave lithotripsy. In the preoperative area and x-ray was done to confirm the location of the stone. The x-ray was reviewed and the stone location was reviewed. In the preoperative setting I spoke with the patient regarding the treatment of the stone how the treatment would be conducted and the expectations after surgery. The patient understands there is a risk of bleeding and infection. Also discussed the very rare risk of hematoma or damage to the kidney. We also discussed the risk that the shockwave machine will fail to break the stone adequately and that the patient may need other surgical procedures. I also discussed the possibility that the patient may need a stent after the procedure. After reviewing the procedure with the patient, the patient is signed the consent form all the patient's questions were addressed and was taken back to the operating room for treatment of a kidney stone. Patient was taken back to the operating room, the patient was identified by the nursing staff, I identified the side of the treatment and the patient side of treatment had been marked by my initials. The patient underwent general anesthetic and was placed supine on the lithotripter table. I then used fluoroscopy to identify the stone on the distal right ureter. I then positioned the patient under the lithotripter and I used triangulation technique to iden tify the location of the stone and then I made sure that the stone was engaged in the F2 focal point of F2 Donier lithoprior machine. Once the patient was positioned appropriately and the stone was identified and placed in the F2 focal point of the lithotripter machine I then proceeded with shockwave lithotripsy. In the beginning the shockwave was delivered at a rate of 90 shocks per minute, anesthesia monitored the EKG for any ectopy. The power was slowly increased to 5 kV and subsequently at the 7 kV. I then proceeded with the treatment with shock wave therapy and around during the treatment to make sure the stone stayed in the F2 focal point during the entire treatment and after 3000 shockwaves were delivered to the stone under fluoroscopic guidance the treatment was completed. The patient was given instructions to call the office to make an a follow-up appointment with an xray to evaluate the success of the treatment, pateint understands that its possible the stones may need another procedure.At this point the patient's anesthetic was reversed patient was extubated and taken back to the PACU in stable condition. Surgical Findings: stone in distal ureter broke up Complications Complications: No Admit VTE Documentation VTE Present on Admission: No VTE Mechan Device Prophylaxis: SCD's VTE Pharm Prophylaxis ordered?: No
--- NOTE | 2024-09-26 16:15 | PCM.POST.ANE ---
Anesthesia: Postop Eval I Current Vital Signs Temperature: 97.4 F Pulse Rate: 76 Blood Pressure: 145/79 Respiratory Rate: 18 Pulse Ox: 99 Oxygen Delivery Method: Room Air Assessment Airway patent: Yes Spontaneous unlabored respirations: Yes Mental status: Awake and Calm nausea: No Vomiting: No Anesthesia Complication: No Fluid Hydration Crystalloid volume administer (ml): 500 Total IV fluid infused: 500 Progress Note Anesthesia document: Postop Eval 1 completed: Yes
--- NOTE | 2024-09-26 16:47 | POSTOPAN2_ITS ---
Anesthesia Postop Eval I Sum Postop Eval Completion status Anesthesia document: Postop Eval 1 completed: Yes Anesthesia Postop Eval I Summary Anesthesia Postop Eval I Summary: Anesthesia Postop Eval I: Assessment Summary Airway patent Yes 09/26/24 16:16 CORRESPONDENCE [email or web address].JOSE ALFREDOOBRenae Spontaneous unlabored Yes 09/26/24 16:16 CORRESPONDENCE DICTATOR.JIM respirations Mental status Awake,Calm 09/26/24 16:16 CORRESPONDENCE [email or web address] nausea No 09/26/24 16:16 CORRESPONDENCE DICTATOR.JIM Vomiting No 09/26/24 16:16 CORRESPONDENCE DICTATOR.JIM Anesthesia Postop Eval I: Fluid Summary Crystalloid volume administer 500 09/26/24 16:16 CORRESPONDENCE DICTATOR.JOSE ALFREDOOBY (ml) Colloids volume administered ( ml) Blood Product volume administered (ml) Total IV fluid infused 500 09/26/24 16:16 CORRESPONDENCE DICTATOR.JIM Anesthesia Postop Eval I: Summary Notes Anesthesia Complication No 09/26/24 16:16 CORRESPONDENCE DICTATORSHOAIB Anesthesia Complication Comment: Post-operative progress note Anesthesia: Postop Eval II Evaluation Mental status: Awake Pain Level: 0 nausea: No Vomiting: No
--- NOTE | 2024-09-26 16:47 | PCM.POSTANE2 ---
Anesthesia Postop Eval I Sum Postop Eval Completion status Anesthesia document: Postop Eval 1 completed: Yes Anesthesia Postop Eval I Summary Anesthesia Postop Eval I Summary: Anesthesia Postop Eval I: Assessment Summary Airway patent Yes 09/26/24 16:16 PAPER [email or web address] ALFREDOOBRenae Spontaneous unlabored Yes 09/26/24 16:16 PAPER [email or web address] respirations Mental status Awake,Calm 09/26/24 16:16 PAPER [email or web address] nausea No 09/26/24 16:16 PAPER [email or web address] Vomiting No 09/26/24 16:16 PAPER [email or web address] Anesthesia Postop Eval I: Fluid Summary Crystalloid volume administer 500 09/26/24 16:16 PAPER [email or web address].JOSE ALFREDOOBY (ml) Colloids volume administered ( ml) Blood Product volume administered (ml) Total IV fluid infused 500 09/26/24 16:16 PAPER [email or web address] Anesthesia Postop Eval I: Summary Notes Anesthesia Complication No 09/26/24 16:16 PAPER CLEANERSHOAIB Anesthesia Complication Comment: Post-operative progress note Anesthesia: Postop Eval II Evaluation Mental status: Awake Pain Level: 0 nausea: No Vomiting: No
== END 2024-09-26 16:52 | disposition home or self-care (01) ==
LOC: SDC 12:09 → AC 12:10
PROVIDERS: PCP Family Medicine; Referring Provider Urology; Visit Provider Urology
PROC: (CPT 50590; principal; 2024-09-26 14:20)
DX: N13.2 Hydronephrosis with renal and ureteral calculous obstruction (principal)
CPT/HCPCS: 50590; 00873; J2405